=== PATIENT | female | born 1990 | race Asian ===

== ENCOUNTER 2024-07-09 09:35 | Emergency (ER) | payer OTHER ==
[~2024-07-09] VITALS: Ht 162.6 cm; Wt 64.9 kg
[2024-07-09 09:47] VITALS: TEMP 97.8
[2024-07-09 10:14] LABS: BASOPHILS % 0.3 % (0.0-1.0); EOSINOPHILS # (AUTO) 0.3 (0.0-0.4); EOSINOPHILS % 2.5 % (0.0-6.0); HEMATOCRIT 42.1 % (34.2-44.1); HEMOGLOBIN 13.1 g/dL (12.0-16.0); LYMPHOCYTES # (AUTO) 5.2 (1.0-3.2); LYMPHOCYTES % 39.5 % (18.0-39.1); MEAN CORPUSCULAR HGB CONC 31.1 g/dL (31-35); MONOCYTES # (AUTO) 0.9 (0.2-0.8); MONOCYTES % 6.8 % (4.4-11.3); NEUTROPHILS # (AUTO) 6.6 (2.1-6.9); NEUTROPHILS % 50.7 % (38.7-80.0); PLATELET COUNT 278 x10e3/uL (140-360); RED BLOOD COUNT 4.68 x10e6/uL (3.6-5.1); WHITE BLOOD COUNT 13.09 x10e3/uL (4.8-10.8)
[2024-07-09] MEDS: SODIUM CHLORIDE 0.9% 1000ML 1,000 ML IV STA (10:32)
[2024-07-09 10:44] LABS: ALANINE AMINOTRANSFERASE 23 IU/L (0-55); ALBUMIN 4.2 g/dL (3.5-5.0); ALKALINE PHOSPHATASE 56 IU/L (40-150); ANION GAP 13.1 mmol/L (8-16); BILIRUBIN,TOTAL 0.4 mg/dL (0.2-1.2); BLOOD UREA NITROGEN 8 mg/dL (7-26); BUN/CREATININE RATIO 10 (6-25); CALCIUM 9.4 mg/dL (8.4-10.2); CARBON DIOXIDE 24 mmol/L (22-29); CHLORIDE 104 mmol/L (98-107); CREATINE KINASE 69 IU/L (29-168); EST GLOMERULAR FILTRATION RATE 100 ML/MIN (>=60); GLUCOSE 119 mg/dL (74-118); MAGNESIUM 2.1 MG/DL (1.3-2.1); SODIUM 138 mmol/L (136-145); TOTAL PROTEIN 8.3 g/dL (6.5-8.1)
[2024-07-09 10:49] LABS: TROPONIN I 0.002 ng/mL (0-0.300)
[2024-07-09 10:53] LABS: POTASSIUM 3.1 mmol/L (3.5-5.1)
[2024-07-09 11:01] LABS: INR 0.86; PROTHROMBIN TIME 12.2 seconds (11.9-14.5)
[2024-07-09 11:03] LABS: PARTIAL THROMBOPLASTIN TIME 28.2 seconds (23.8-35.5)
[2024-07-09 12:08] LABS: INFLUENZAE A&B ANTIGEN (RAPID) NEGATIVE (NEGATIVE); RESPIRATORY SYNC. VIRUS NEGATIVE (NEGATIVE)
[2024-07-09 13:05] VITALS: PULSE 76; RESP 18
[2024-07-09 13:18] VITALS: BP 115/70; PULSE 75; RESP 18; O2SAT 100
== END 2024-07-09 13:18 | disposition home or self-care (01) ==
LOC: ER 09:41
DX: R00.2 Palpitations (principal); R06.02 Shortness of breath; R07.89 Other chest pain; Z11.52 Encounter for screening for COVID-19; R94.31 Abnormal electrocardiogram [ECG] [EKG]
CPT/HCPCS: 36415; 71045; 80053; 82550; 83735; 84443; 84484; 84702; 85025; 85379; 85610; 85730; 87400; 87420; 93005; 99284; J7030; U0002